=== PATIENT | female | born 1995 | race African-American/Black ===

== ENCOUNTER 2023-11-06 07:25 | Emergency (ER) | payer BC, SELFPAY ==
[2023-11-06 07:34] VITALS: BP 108/74; PULSE 81; O2SAT 100; BMI 31.2
--- NOTE | 2023-11-06 07:41 | ECG_ITS ---
Test Reason : CHEST PAIN Blood Pressure : / mmHG Vent. Rate : 061 BPM Atrial Rate : 061 BPM P-R Int : 180 ms QRS Dur : 070 ms QT Int : 386 ms P-R-T Axes : 051 024 018 degrees QTc Int : 388 ms Normal sinus rhythm Low voltage QRS Septal infarct , age undetermined Abnormal ECG No previous ECGs available Referred By: Latia Perry Electronically Signed By:SAM ENCINAS MD
[2023-11-06 08:08] VITALS: BP 104/69; PULSE 66; RESP 18; TEMP 37.1; O2SAT 100
[2023-11-06 08:40] LABS: MANUAL DIFF FLAG NO
--- NOTE | 2023-11-06 08:43 | ED_ITS ---
HPI - Chest Pain General Chief Complaint: Chest Pain Stated Complaint: L SIDED UPPER CP Time Seen by Provider: 11/06/23 07:29 Source: patient Mode of arrival: ambulatory History of Present Illness HPI narrative: 28-year-old female states that she woke up this morning at 06:30 with pinching she/crampy left parasternal discomfort that she states comes and goes and she reports radiation to the left shoulder. Patient also concerned regarding noticing that her left arm felt weak and that her left leg felt weaker. She denies any fever, chills and does suffer from anxiety and depression and states that she has recently had an increase in her lamotrigine. Otherwise, patient states she is on her menstrual cycle currently. Related Data Allergies Allergy/AdvReac Type Severity Reaction Status Date / Time No Known Allergies Allergy Verified 11/06/23 07:55 Review of Systems 2 Review of Systems: Pertinent positives and negatives as stated in HPI [facility] Past Medical History Source: nursing notes reviewed Social History Social History Alcohol intake: current Alcohol intake frequency: holidays/special occasions only Smoked in Last 30 Days: No Use of substances other than those prescribed or required for medical reasons: No Advance Directives: No Advance Directives Information Provided: No Patient : No Physical Exam 2 Vital Signs: Vital Signs: Last Vital Signs Temp 98.1 F 11/06/23 10:29 Pulse 59 11/06/23 10:29 Resp 14 11/06/23 10:29 BP 117/68 11/06/23 10:29 Pulse Ox 100 11/06/23 08:08 O2 Del Method Room Air 11/06/23 08:08 BMI result Body Mass Index 31.2 VITAL SIGNS: Reviewed. GENERAL: Well developed, well nourished, in no acute distress. HEAD: Normocephalic/atraumatic EYES: PERRLA, EOMI EARS: Ext canals without abnormality, TMs non-bulging and non-erythematous NOSE: Nares patent bilateral OROPHARYNX: no oral lesions noted, posterior pharynx clear and non-erythematous without noted tonsillar enlargement/erythema/exudates NECK: Supple, no adenopathy LUNGS: Normal breath sounds. No adventitious sounds or accessory muscle use. SpO2<100> CARDIOVASCULAR: Regular rate and rhythm without noted murmurs, no JVD or lower extremity edema. ABDOMEN: Soft, non-tender, non-distended with bowel sounds. MUSCULOSKELETAL: No tenderness, deformities, or effusions noted on gross inspection. EXTREMITIES: No cyanosis, clubbing or edema. SKIN: Inspection of the skin reveals no rashes NEUROLOGIC: Alert and oriented x 4. Strength and sensation to light touch were grossly intact x 4, no facial asymmetry, no pronator drift, cranial nerves 2-12 are grossly intact.. Medications Administered Discontinued Medications Generic Name Dose Route Start Last Admin Trade Name Abdulazizq PRN Reason Stop Dose Admin Acetaminophen 975 mg 11/06/23 09:58 11/06/23 10:27 Acetaminophen 325 Mg Tablet PO 11/06/23 09:59 975 mg ONCE ONE Administration Medical Decision Making Medical Decision Making [facility] Narrative: 28-year-old female with history and clinical presentation, DDX: Atypical chest pain, on review of patient's medication list she appears to be on chronic naproxen, low clinical suspicion for cardiopulmonary etiology and patient is PERC negative. She is currently asymptomatic at the time of my interview. No clinical suspicion for neurologic etiology, there are no focal findings, no clinical suspicion for pneumothorax or pneumonia. I reviewed all investigations and hematologic indices are negative for leukocytosis or left shift and there is no anemia or thrombocytopenia. There is noted elevation of eosinophils which may be related to what I can only suspect is an asthma diagnosis as on her medication list she is noted to have a prescription for an albuterol inhaler. However, on lung exam there is no evidence acute asthma exacerbation or expiratory wheezing. Chemistry indices are negative for MATIAS/electrolytes/liver enzyme derangements. Urinalysis is negative for UTI or hematuria and urine is negative. UDS is negative. I reviewed viral testing which is negative for COVID-19. Patient is otherwise discharged in my interpretation is that she is likely experiencing a combination of anxiety and costochondritis but there is a possibility of NSAID induced reflux/chest pain. Differential Diagnosis Differential Diagnoses: The differential diagnosis associated with the presentation includes Please see the discussion above Admission/Observation Consideration of admission/observation: Escalation of care including admission/observation considered Please see the discussion above Lab Data [facility] Lab Attestation statement: I reviewed the patient's lab results. Please see the discussion above 11/06/23 08:32 11/06/23 08:32 Labs: Lab Results 11/06/23 11/06/23 Range/Units 08:32 09:24 WBC 7.4 (4.8-10.8) X10*3/uL RBC 5.12 (4.20-5.50) X10*6/uL Hgb 13.4 (12.0-16.0) g/dl Hct 41.8 (37.0-47.0) % MCV 81.6 (80.0-98.0) fL MCH 26.2 L (27.0-33.0) pg MCHC 32.1 (31.0-35.0) g/dl RDW 13.6 (11.0-16.0) % Plt Count 308 (160-400) X10*3/uL MPV 10.9 (9.4-12.3) fL Immature Gran % (Auto) 0.3 (0.0-0.4) % Neut % (Auto) 63.6 (45-73) % Lymph % (Auto) 23.1 (20-40) % [place] % (Auto) 8.3 (2-11) % Eos % (Auto) 4.3 H (0-4) % Baso % (Auto) 0.4 (0-2) % Lymph # (Auto) 1.7 (1.2-4.9) X10*3/uL [place] # (Auto) 0.6 (0.1-1.2) X10*3/uL Eos # (Auto) 0.3 (0.0-0.4) X10*3/uL Baso # (Auto) 0.0 (0.0-0.2) X10*3/uL Abs Immat Gran (auto) 0.02 (0.00-0.03) X10*3/uL Absolute Neuts (auto) 4.7 (2.0-8.3) x10*3/uL Absolute Nucleated RBC 0.000 (0.0-0.012) X10*3/uL Nucleated RBC % (auto) 0.0 (0.0-0.2) /100WBC Sodium 139 (135-145) mmol/L Potassium 4.5 (3.3-5.1) mmol/L Chloride 107 (96-108) mmol/L Carbon Dioxide 25 (22-29) mmol/L Anion Gap 12 (12-20) BUN 14 (9-16) mg/dL Creatinine 0.83 (0.5-1.4) mg/dL Estim Creat Clear Calc 88.8 Estimated GFR > 60 Random Glucose 87 (60-115) mg/dL Calcium 9.9 (8.4-10.2) mg/dL Total Bilirubin 0.5 (0.0-1.0) mg/dL AST 19 (5-31) U/L ALT 14 (0-31) U/L Alkaline Phosphatase 62 (39-117) U/L Total Protein 7.5 (6.5-8.0) g/dL Albumin 4.4 (3.5-5.0) g/dL Urine Color Yellow Urine Appearance Clear Urine pH 8.5 (5.0-9.0) Ur Specific [place] 1.010 (1.005-1.025) Urine Protein Negative (Neg-Trace) mg/dL Urine Glucose (UA) Negative (Negative) mg/dL Urine Ketones Negative (Negative) mg/dL Urine Blood Negative (Negative) Urine Nitrite Negative (Negative) Ur Leukocyte Esterase Negative (Negative) Urine Test NEGATIVE (NEGATIVE) Urine Opiates Screen Not Detected (Not Detect) Urine Fentanyl Screen Not Detected (Not Detect) Ur Barbiturates Screen Not Detected (Not Detect) Ur Phencyclidine Scrn Not Detected (Not Detect) Ur Amphetamines Screen Not Detected (Not Detect) U Benzodiazepines Scrn Not Detected (Not Detect) Urine Cocaine Screen Not Detected (Not Detect) U Marijuana (THC) Screen Not Detected (Not Detect) COVID-19 (GIL) Negative (Negative) COVID-19 Clin Com See Note Independent Interpretation I performed an independent interpretation of an: EKG Interpretation: Normal sinus rhythm, HR-61, no STEMI, IN/QRS/QTC is within normal limits. Critical Care Time Critical Care Time Critical Care Time: Yes Total Critical Care Time: 30 Attestation: I personally attest to this time spent taking care of the patient. Discharge Plan Discharge Clinical Impression: Atypical chest pain, Acute costochondritis, Anxiety, NSAID induced gastritis Patient Disposition: Home, Self-Care Instructions: Gastritis (ED), Diet for Stomach Ulcers and Gastritis (ED), Costochondritis (ED), Anxiety (ED) Additional Instructions: 1. Resume all home medications as prescribed. Except I would use significant caution with the naproxen as in certain cases this can cause similar symptoms to what you are experiencing. 2. Recommend sticking to Tylenol currently for pain/discomfort, you may try [id number] lidocaine patches and apply to area of maximal tenderness. 3. Please follow-up with your primary care doctor on Wednesday morning. Return to the ER for any worsening symptoms. Referrals: Ivan Flynn MD [Primary Care Provider] -
[2023-11-06 08:45] LABS: Appearance Urine Clear; Basophils Percent Auto 0.4 % (0-2); Color Urine Yellow; Eosinophils Absolute Auto 0.3 X10*3/uL (0.0-0.4); Eosinophils Percent Auto 4.3 % (0-4); Glucose Urine UA Negative (Negative); Hematocrit 41.8 % (37.0-47.0); Hemoglobin 13.4 g/dl (12.0-16.0); Imm Gran Abs Auto 0.02 X10*3/uL (0.00-0.03); Imm Gran Pct Auto 0.3 % (0.0-0.4); Leukocyte Esterase Urine Negative (Negative); Lymphocytes Absolute Auto 1.7 X10*3/uL (1.2-4.9); Lymphocytes Percent Auto 23.1 % (20-40); Mean Corpuscular HGB Conc 32.1 g/dl (31.0-35.0); Mean Corpuscular Hemoglobin 26.2 pg (27.0-33.0); Mean Corpuscular Volume 81.6 fL (80.0-98.0); Mean Platelet Volume 10.9 fL (9.4-12.3); Monocytes Absolute Auto 0.6 X10*3/uL (0.1-1.2); Monocytes Percent Auto 8.3 % (2-11); Neutrophils Absolute Auto 4.7 x10*3/uL (2.0-8.3); Neutrophils Percent Auto 63.6 % (45-73); Nitrite Urine Negative (Negative); PH 8.5 (5.0-9.0); Platelet Count 308 X10*3/uL (160-400); Red Blood Count 5.12 X10*6/uL (4.20-5.50); Red Cell Distribution Width 13.6 % (11.0-16.0); Urine Blood Negative (Negative); Urine Ketones Negative (Negative); Urine Protein Negative (Neg-Trace); White Blood Count 7.4 X10*3/uL (4.8-10.8)
[2023-11-06 08:47] LABS: UPreg QC Valid YES; Urine Pregnancy NEGATIVE (NEGATIVE)
[2023-11-06 08:52] LABS: Amphetamine Screen Urine Not Detected (Not Detect); Barbiturates, Urine Not Detected (Not Detect); Benzodiazepines Screen Urine Not Detected (Not Detect); Cannabinoid Screen Urine Not Detected (Not Detect); Cocaine Screen Urine Not Detected (Not Detect); Fentanyl, urine Not Detected (Not Detect); Opiate Screen Urine Not Detected (Not Detect); Phencyclidine Screen Urine Not Detected (Not Detect)
[2023-11-06 09:00] LABS: Alanine Aminotransferase 14 U/L (0-31); Albumin Level 4.4 g/dL (3.5-5.0); Alkaline Phosphatase 62 U/L (39-117); Anion Gap 12 (12-20); Aspartate Amino Transferase 19 U/L (5-31); Bilirubin Total 0.5 mg/dL (0.0-1.0); Blood Urea Nitrogen 14 mg/dL (9-16); Calcium 9.9 mg/dL (8.4-10.2); Carbon Dioxide 25 mmol/L (22-29); Chloride 107 mmol/L (96-108); Creatinine Clr Calc Pharmacy 88.8; Estimated Glomerular Filt Rate > 60; Glucose Random 87 mg/dL (60-115); Potassium 4.5 mmol/L (3.3-5.1); Sodium 139 mmol/L (135-145); Total Protein 7.5 g/dL (6.5-8.0)
[2023-11-06 10:09] LABS: COVID-19 Test Negative (Negative); IDNOW Serial# 08D9AD1C
[2023-11-06] MEDS: Acetaminophen 325 MG TABLET 975 MG PO (10:27)
[2023-11-06 10:29] VITALS: BP 117/68; PULSE 59; RESP 14; TEMP 36.7
[2023-11-06 11:16] VITALS: BP 117/50; PULSE 66; RESP 18; TEMP 36.8; O2SAT 98
[2023-11-06 12:55] LABS: Troponin-I High Sensitivity < 2.7 ng/L (<3.5-17.0)
== END 2023-11-06 11:16 | disposition home or self-care (01) ==
PROVIDERS: Emergency Provider Student in an Organized Health Care Education/Training Program; PCP Internal Medicine
DX: K29.60 Other gastritis without bleeding (principal); R07.89 Other chest pain; M94.0 Chondrocostal junction syndrome [Tietze]; F41.9 Anxiety disorder, unspecified; Z11.52 Encounter for screening for COVID-19; Z79.899 Other long term (current) drug therapy
CPT/HCPCS: 36415; 80053; 80307; 81003; 81025; 84484; 85025; 87635; 93005; 99283; 99285

== ENCOUNTER → 2023-11-06 07:41 | Outpatient (BNV) | payer BC, SELFPAY | PROVIDERS: Emergency Provider Student in an Organized Health Care Education/Training Program; PCP Internal Medicine; Visit Provider Internal Medicine Cardiovascular Disease | DX: R94.31 Abnormal electrocardiogram [ECG] [EKG] (principal) | CPT/HCPCS: 93010 ==

== ENCOUNTER 2024-09-22 09:31 | Emergency (ER) | payer BC, SELFPAY ==
--- NOTE | ~2024-09-22 | XR_ITS ---
EXAMINATION: XR CHEST CLINICAL INFORMATION: chest pain COMPARISON: None available. TECHNIQUE: 2 views of the chest were obtained. FINDINGS: No significant abnormality is noted involving the heart, lungs, mediastinum, bony thorax or soft tissues. XR/XR chest 2V IMPRESSION: No acute disease Electronically signed by: Jaiden Worley MD 09/22/2024 10:38 AM [facility]
--- NOTE | 2024-09-22 09:32 | ECG_ITS ---
Test Reason : chest pain Blood Pressure : / mmHG Vent. Rate : 074 BPM Atrial Rate : 074 BPM P-R Int : 158 ms QRS Dur : 068 ms QT Int : 378 ms P-R-T Axes : 057 020 024 degrees QTc Int : 419 ms Normal sinus rhythm Septal infarct (cited on or before 06-NOV-2023) Abnormal ECG When compared with ECG of 06-NOV-2023 07:52, No significant change was found Referred By: Generic ED Physician Electronically Signed By:
[2024-09-22 09:44] VITALS: BP 96/49; PULSE 86; RESP 20; TEMP 36.6; O2SAT 100; BMI 33.2
[2024-09-22 10:01] LABS: MANUAL DIFF FLAG NO
[2024-09-22 10:08] LABS: Basophils Percent Auto 0.5 % (0-2); Eosinophils Absolute Auto 0.2 X10*3/uL (0.0-0.4); Eosinophils Percent Auto 2.1 % (0-4); Hematocrit 41.9 % (37.0-47.0); Hemoglobin 13.7 g/dl (12.0-16.0); Imm Gran Abs Auto 0.02 X10*3/uL (0.00-0.03); Imm Gran Pct Auto 0.3 % (0.0-0.4); Lymphocytes Absolute Auto 1.9 X10*3/uL (1.2-4.9); Lymphocytes Percent Auto 24.3 % (20-40); Mean Corpuscular HGB Conc 32.7 g/dl (31.0-35.0); Mean Corpuscular Hemoglobin 26.6 pg (27.0-33.0); Mean Corpuscular Volume 81.2 fL (80.0-98.0); Mean Platelet Volume 10.6 fL (9.4-12.3); Monocytes Absolute Auto 0.7 X10*3/uL (0.1-1.2); Monocytes Percent Auto 8.6 % (2-11); Neutrophils Absolute Auto 5.1 x10*3/uL (2.0-8.3); Neutrophils Percent Auto 64.2 % (45-73); Platelet Count 318 X10*3/uL (160-400); Red Blood Count 5.16 X10*6/uL (4.20-5.50); Red Cell Distribution Width 14.2 % (11.0-16.0); White Blood Count 7.9 X10*3/uL (4.8-10.8)
[2024-09-22 10:15] LABS: Prothrombin Time 11.7 SEC (10.9-12.4)
[2024-09-22 10:20] LABS: Alanine Aminotransferase 23 U/L (0-31); Albumin Level 4.5 g/dL (3.5-5.0); Alkaline Phosphatase 72 U/L (39-117); Anion Gap 10 (12-20); Aspartate Amino Transferase 29 U/L (5-31); Bilirubin Total 0.7 mg/dL (0.0-1.0); Blood Urea Nitrogen 11 mg/dL (9-16); Calcium 9.5 mg/dL (8.4-10.2); Carbon Dioxide 25 mmol/L (22-29); Chloride 108 mmol/L (96-108); Creatinine Clr Calc Pharmacy 90.7; Estimated Glomerular Filt Rate > 60; Glucose Random 88 mg/dL (60-115); Potassium 4.2 mmol/L (3.3-5.1); Sodium 139 mmol/L (135-145); Total Protein 7.9 g/dL (6.5-8.0)
[2024-09-22 10:24] LABS: Troponin-I High Sensitivity < 2.7 ng/L (<3.5-17.0)
[2024-09-22 10:34] LABS: D Dimer High Sensitivity < 150 NG/ML
--- NOTE | 2024-09-22 10:42 | ED_ITS ---
HPI - Chest Pain General Chief Complaint: Chest Pain Stated Complaint: CP Time Seen by Provider: 09/22/24 10:42 Source: patient Mode of arrival: ambulatory Limitations: no limitations History of Present Illness ED Provider: Ramya Morris PA-C HPI narrative: Patient is a 28 year old assigned female at , now identifies as non-binary, with a history of endometriosis on OCP presenting to the emergency department today with left sided chest pain. Patient states that they were seen at a priority care for this chest pain and recommended to come to the ER to rule out a blood clot given their medication regimen. Patient states that the pain started yesterday and has been central / left sided. Patient states that the pain is worse with left arm movement and palpation / pressure on the area makes the pain better somewhat but does not resolve it. Patient denies any dizziness, lightheadedness, abdominal pain, nausea, vomiting, fever, chills, blurry vision, double vision, loss of vision, difficulty breathing, shortness of breath, back pain, night sweats, pain with urination, increased urinary frequency, increased urinary urgency, blood in their urine or stool, syncope or a near syncopal episode, recent trauma or falls, bowel incontinence, bladder incontinence, or any other complaints at this time. MD complaint: chest pain Pain radiation: left arm Severity: moderate Pain scale (0-10): 4 Quality: sharp Relieving factors: other (palpation / pressure) Exacerbating factors: movement Treatment prior to arrival: none Related Data On Oral Contraceptives: Yes Previous Rx's ?Medication ?Instructions ?Recorded cyclobenzaprine 5 mg tablet 5 mg PO TID PRN chest wall pain 7 09/22/24 days #21 tabs Allergies Allergy/AdvReac Type Severity Reaction Status Date / Time No Known Allergies Allergy Verified 09/22/24 09:48 Review of Systems 2 Constitutional: Constitutional: Reports no additional constitutional complaints, Denies chills, Denies fever(s) and Denies night sweats Eyes: Eyes: Reports no additional eye complaints, Denies blurry vision, Denies change in vision, Denies diplopia, Denies eye discharge, Denies loss of vision and Denies eye pain ENT: Denies dizziness Cardiovascular: Cardiovascular: Reports no additional cardiovascular complaints, Reports chest pain, Denies lightheadedness, Denies Loss of Consciousness and Denies dyspnea Respiratory: Respiratory: Reports no additional respiratory complaints and Denies dyspnea Gastrointestinal: Gastrointestinal: Reports no additional gastrointestinal complaints, Denies abdominal pain, Denies melena, Denies hematochezia, Denies change in bowel habits and Denies change in stool character Genitourinary: Genitourinary: Denies hematuria, Denies urinary frequency, Denies dysuria, Denies urinary incontinence, Denies urinary hesitancy and Denies urinary urgency Musculoskeletal: Musculoskeletal: Reports no additional musculoskeletal complaints, Denies numbness and Denies tingling Neurologic: Denies dizziness, Denies loss of vision, Denies numbness and Denies tingling Psychiatric: Psychiatric: Reports no additional psychiatric complaints Endocrine: Endocrine: Reports no additional endocrine complaints Hematologic/Lymphatic: Hematologic/Lymphatic: Reports no additional hematologic/lymphatic complaints Allergic/Immunologic: Allergic/Immunologic: Reports no additional allergic/immunologic complaints PMFSH Past Medical History Attestation statement: The following information was validated with the patient. Source: old records reviewed and nursing notes reviewed Social History Social History Alcohol intake: current Alcohol intake frequency: holidays/special occasions only Advance Directives: No Advance Directives Information Provided: No Physical Exam 2 Vital Signs: Vital Signs: Last Vital Signs Temp 98 F 09/22/24 09:44 Pulse 86 09/22/24 09:44 Resp 20 09/22/24 09:44 BP 96/49 L 09/22/24 09:44 Pulse Ox 100 09/22/24 09:44 O2 Del Method Room Air 09/22/24 09:44 BMI result Body Mass Index 33.2 Const: General: cooperative, no acute distress, alert and awake Nutritional Appearance: well nourished Orientation/consciousness: patient oriented x3 Limitations: no limitations HEENT: Head: Yes normal to inspection and Yes atraumatic Ears: hearing grossly normal bilaterally and external ears normal General nose exam: Normal external nose present, no nasal discharge noted and no epistaxis Face and sinus: Yes normal facial exam, No abrasion and No laceration Mouth: Normal oral and palatal mucosa present, no drooling and no muffled voice Eyes: General: appearance normal, both eyes and all related structures P eriorbital: periorbital findings normal Eyelids: Yes eyelids normal C onjunctivae: conjunctivae normal Pupils: Equal, round and reactive pupils present EOM: EOMs intact bilaterally Neck: Neck: Yes normal visual inspection, Yes full ROM and Yes no lymphadenopathy Chest: Chest palpation & inspection: normal inspection of the chest Resp: Effort & Inspection: normal respiratory effort and able to speak in complete sentences Auscultation: clear to auscultation bilaterally Cardio: Rate: regular rate Rhythm: regular rhythm Heart sounds: S1 normal heart sound present and S2 normal heart sound present GI: Inspection: Yes normal to inspection Neuro: General: patient oriented x3 and moves all extremities Cranial nerves: Yes Equal, round and reactive pupils present Cognition (Neuro): n ormal cognition Extrem: General: Yes normal to inspection, Yes full ROM and Yes capillary refill normal Psych: Appearance: grossly normal Mental Status: mental status grossly normal Affect: normal affect Attitude: cooperative Thought process: N ormal thought process present Thought content: Normal thought content present Insight: Good insight present (Psych) Medications Administered Discontinued Medications Generic Name Dose Route Start Last Admin Trade Name Freq PRN Reason Stop Dose Admin Cyclobenzaprine HCl 5 mg 09/22/24 11:15 09/22/24 11:57 Cyclobenzaprine Hcl 5 Mg Tablet PO 09/22/24 11:16 5 mg ONCE ONE Administration Ketorolac Tromethamine 15 mg 09/22/24 11:15 09/22/24 11:57 Ketorolac Tromethamine 15 Mg/Ml Vial IVPUSH 09/22/24 11:16 15 mg ONCE ONE Administration Medical Decision Making Medical Decision Making [facility] Narrative: Patient is a 28 year old assigned female at , now identifies as non-binary, with a history of endometriosis on OCP presenting to the emergency department today with left sided chest pain. Patient's physical exam was unremarkable. Patient's blood work was unremarkable. Patient's EKG was unremarkable. Patient's chest x-ray showed no acute process. I explained my physical exam findings as well as all test results to the patient. I answered all questions asked by the patient. Patient received PO Flexeril and IV Toradol which, upon re-evaluation, they stated it helped their symptoms. I stressed the importance of the patient taking their medication as directed (either prescribed or as the over the counter packaging recommends). I stressed the importance of the patient following up with their primary care provider. I stressed the importance of the patient returning to the emergency department immediately if their symptoms were to worsen or if they were to develop any dizziness, shortness of breath, difficulty breathing, chest pain, blurry vision, loss of vision, nausea, vomiting, abdominal pain, fever, chills, back pain, or any other complaints. Patient verbalized agreement and understanding with this treatment plan and discharge. Differential Diagnosis Differential Diagnoses: The differential diagnosis associated with the presentation includes Atypical chest pain Chest wall pain PE - negative D-dimer NSTEMI STEMI Admission/Observation Consideration of admission/observation: Escalation of care including admission/observation considered Patient would have been admitted to the hospital had their work up had any findings where hospital admission was appropriate and their clinical presentation warranted hospital admission. Lab Data [facility] Lab Attestation statement: I reviewed the patient's lab results. My interpretation of these results are in the [facility] Rationale portion of this note. 09/22/24 09:57 09/22/24 09:57 Labs: Lab Results 09/22/24 Range/Units 09:57 WBC 7.9 (4.8-10.8) X10*3/uL RBC 5.16 (4.20-5.50) X10*6/uL Hgb 13.7 (12.0-16.0) g/dl Hct 41.9 (37.0-47.0) % MCV 81.2 (80.0-98.0) fL MCH 26.6 L (27.0-33.0) pg MCHC 32.7 (31.0-35.0) g/dl RDW 14.2 (11.0-16.0) % Plt Count 318 (160-400) X10*3/uL MPV 10.6 (9.4-12.3) fL Immature Gran % (Auto) 0.3 (0.0-0.4) % Neut % (Auto) 64.2 (45-73) % Lymph % (Auto) 24.3 (20-40) % [place] % (Auto) 8.6 (2-11) % Eos % (Auto) 2.1 (0-4) % Baso % (Auto) 0.5 (0-2) % Lymph # (Auto) 1.9 (1.2-4.9) X10*3/uL [place] # (Auto) 0.7 (0.1-1.2) X10*3/uL Eos # (Auto) 0.2 (0.0-0.4) X10*3/uL Baso # (Auto) 0.0 (0.0-0.2) X10*3/uL Abs Immat Gran (auto) 0.02 (0.00-0.03) X10*3/uL Absolute Neuts (auto) 5.1 (2.0-8.3) x10*3/uL Absolute Nucleated RBC 0.000 (0.0-0.012) X10*3/uL Nucleated RBC % (auto) 0.0 (0.0-0.2) /100WBC PT 11.7 (10.9-12.4) SEC INR 1.0 (0.9-1.1) D-Dimer High Sensitivty < 150 NG/ML Sodium 139 (135-145) mmol/L Potassium 4.2 (3.3-5.1) mmol/L Chloride 108 (96-108) mmol/L Carbon Dioxide 25 (22-29) mmol/L Anion Gap 10 L (12-20) BUN 11 (9-16) mg/dL Creatinine 0.84 (0.5-1.4) mg/dL Estim Creat Clear Calc 90.7 Estimated GFR > 60 Random Glucose 88 (60-115) mg/dL Calcium 9.5 (8.4-10.2) mg/dL Total Bilirubin 0.7 (0.0-1.0) mg/dL AST 29 (5-31) U/L ALT 23 (0-31) U/L Alkaline Phosphatase 72 (39-117) U/L Troponin I High Sens < 2.7 (<3.5-17.0) ng/L Total Protein 7.9 (6.5-8.0) g/dL Albumin 4.5 (3.5-5.0) g/dL Beta HCG, Quant < 2 mIU/mL Independent Interpretation I performed an independent interpretation of an: EKG and Plain X-Ray Interpretation: My interpretation is in agreement with the radiologist's impression of this imaging study. L EXAMINATION: XR CHEST CLINICAL INFORMATION: chest pain COMPARISON: None available. TECHNIQUE: 2 views of the chest were obtained. FINDINGS: No significant abnormality is noted involving the heart, lungs, mediastinum, bony thorax or soft tissues. XR/XR chest 2V IMPRESSION: No acute disease Electronically signed by: Jaiden Worley MD 09/22/2024 10:38 AM EST Dictated By: Jaiden Worley MD Signed By: Electronically signed by Jaiden Worley MD 09/22/24 1038 Vent. Rate: 074 BPM Atrial Rate: 074 BPM P-R Int: 158 ms QRS Dur: 068 ms QT Int: 378 ms P-R-T Axes: 057 020 024 degrees QTc Int: 419 ms Normal sinus rhythm Septal infarct (cited on or before 06-NOV-2023) When compared with ECG of 06-NOV-2023 07:52, No significant change was found DD/ [id number] Radiology Impression Discussion of test interpretation with radiology: I have reviewed the radiologist's reading. Discharge Plan Discharge Clinical Impression: Atypical chest pain Patient Disposition: Home, Self-Care Instructions: Chest Pain (DC), Chest Wall Pain (ED) Additional Instructions: Your work up is reassuring for no emergent issues. Follow up with your primary care provider. Return to the emergency department immediately if your symptoms worsen or if you develop any dizziness, shortness of breath, difficulty breathing, chest pain, blurry vision, loss of vision, nausea, vomiting, abdominal pain, fever, chills, back pain, or any other complaints. Prescriptions: New cyclobenzaprine 5 mg tablet 5 mg PO TID PRN (Reason: chest wall pain) 7 Days Qty: 21 0RF Referrals: Ivan Flynn MD [Primary Care Provider] - Print Language: Martiniquais
[2024-09-22] MEDS: Ketorolac Tromethamine 15 MG/ML VIAL IVPUSH (11:57)
[2024-09-22] MEDS: Cyclobenzaprine HCl 5 MG TABLET PO (11:57)
[2024-09-22 12:16] LABS: HCG Quantitative < 2 mIU/mL
[2024-09-22 12:35] VITALS: BP 96/49; PULSE 86; RESP 20; TEMP 36.6; O2SAT 100
== END 2024-09-22 12:38 | disposition home or self-care (01) ==
PROVIDERS: Physician Assistant Medical; Emergency Provider Emergency Medicine Emergency Medical Services; PCP Internal Medicine
DX: R07.9 Chest pain, unspecified (principal); N80.9 Endometriosis, unspecified
CPT/HCPCS: 36415; 71046; 80053; 84484; 84702; 85025; 85379; 85610; 93005; 96374; 99284; J1885

== ENCOUNTER 2025-09-13 19:07 | Emergency (ER) | payer BC, SELFPAY ==
--- NOTE | ~2025-09-13 | CT_ITS ---
CLINICAL HISTORY: cholecystitis on US, clinical pic mismatch CT abdomen and pelvis with contrast Comparison: X-rays of the abdomen from 09/14/2025 Findings: Mild right dorsal pleural thickening. No consolidation of the imaged lung bases. Gallbladder is now contracted. Contraction of the gallbladder favored to account for the gallbladder wall thickening. Mild fat deposition noted in the liver. Pancreas and adrenal glands are partly obscured and otherwise unremarkable. The spleen is nonenlarged. No hydronephrosis. Filtered contrast could obscure small stones. Dense and/or opaque ingested material noted in the imaged stomach. Fluid and multiple small-bowel loops nonspecific and can be seen with enteritis. No small bowel obstruction. Severe stool burden present, including the cecum. Imaged appendix within normal limits (65 of series 2 and 46 of series 6). Uterus is anteverted and mildly anteflexed. No adnexal soft tissue mass by CT. Mild wall thickening of the urinary bladder is nonspecific. Mild free fluid in the pelvis nonspecific and may be reactive and/or physiologic. Subcutaneous edema is noted dependently. Small fat containing periumbilical hernia. Mild facet arthropathy of the lower lumbar spine. No acute osseous abnormality. IMPRESSION: 1. Severe stool burden. No small bowel obstruction. 2. Mild wall thickening of the urinary bladder is nonspecific. 3. Wall thickening of the gallbladder likely due to contraction and/or underdistention of the time of the imaging. This document has been electronically signed by: Sammy Carter MD on 09/14/2025 03:14:11
--- NOTE | ~2025-09-13 | US_ITS ---
CLINICAL HISTORY: RUQ pain US abdomen limited Comparison: None provided Findings: Increased echogenicity gallbladder lumen concerning for cholelithiasis (11 of 20). Gallbladder wall thickening and pericholecystic fluid concerning for cholecystitis. Imaged CBD is nondilated measuring 4 mm diameter. Sonographic Ott's sign is not elicited by the technologist. Majority of the liver, majority of the pancreas, and of the right kidney are obscured. Partially imaged IVC is unremarkable. Aorta is obscured. No right upper quadrant ascites or right pleural effusion. Suboptimal evaluation of the main portal vein. IMPRESSION: 1. Gallbladder wall thickening, pericholecystic fluid, and cholelithiasis are concerning for cholecystitis. 2. Imaged CBD is nondilated. This document has been electronically signed by: Sammy Carter MD on 09/13/2025 20:54:19
--- NOTE | ~2025-09-13 | XR_ITS ---
CLINICAL HISTORY: pain,constipation? 1 view abdomen Comparison: None provided Findings: Mild bibasilar atelectasis/pneumonitis. No small bowel dilatation in the imaged abdomen. Severe stool burden noted, including in the cecum. No acute fracture defined by frontal radiographs. IMPRESSION: 1. No small bowel obstruction. 2. Severe stool burden. This document has been electronically signed by: Sammy Carter MD on 09/14/2025 02:23:20
--- NOTE | 2025-09-13 19:21 | ED.ABDPAIN ---
HPI - Abdominal Pain General Chief Complaint: Abdominal Pain Stated Complaint: Stomach Pain Time Seen by Provider: 09/13/25 23:27 Source: patient Limitations: no limitations History of Present Illness ED Provider: Romleia Wallace PA-C HPI narrative: 29-year-old female with a history of depression and endometriosis presents with the abdominal pain for 3 weeks. Pain over upper abdomen with radiation to mid back at times. Patient can not recall if eating and drinking trigger her symptoms. Associated nausea but no vomiting. Patient also states she is constipated, she has a bowel movement every 3-4 days. No fever, abdominal distention or inability to pass flatus. Related Data Previous Rx's ?Medication ?Instructions ?Recorded cyclobenzaprine 5 mg tablet 5 mg PO TID PRN chest wall pain 7 09/22/24 days #21 tabs ondansetron 4 mg disintegrating 4 mg PO Q6H PRN nausea and 09/14/25 tablet vomiting #10 tabs Allergies Allergy/AdvReac Type Severity Reaction Status Date / Time No Known Allergies Allergy Verified 09/13/25 19:27 Review of Systems Review of Systems Yes all other systems are reviewed and are negative Constitutional: Denies fatigue and Denies fever(s) Cardiovascular: Denies chest pain and Denies dyspnea Respiratory: Denies dyspnea Gastrointestinal: Reports abdominal pain, Reports constipation, Reports nausea and Reports vomiting Endocrine: Denies fatigue PMFSH Past Medical History Attestation statement: The following information was validated with the patient. Social History Social History Alcohol intake: never Physical Exam ED Vital Signs: Vital Signs - 24 hr 09/13/25 19:22 09/14/25 00:43 09/14/25 02:00 Temperature 98.4 F 98.0 F 98.0 F Pulse Rate 82 70 70 Respiratory Rate 16 18 18 Blood Pressure 112/60 103/63 103/63 Pulse Oximetry 98 99 99 Oxygen Delivery Method Room Air Room Air Room Air BMI result Body Mass Index 28.3 Const Other: Alert, overall well-appearing Orientation/consciousness: patient oriented x3 Resp Effort & Inspection: normal respiratory effort Cardio Other: Normal peripheral perfusion GI Other: Soft, nondistended, generalized tenderness to palpation without guarding Skin Other: Warm dry no rash Neuro General: patient oriented x3, gait normal, no focal motor deficits and CN's II-XI intact bilaterally Psych Other: Cooperative Course Course Course Narrative: This is an RME: Additional HPI, ROS, PE not included below will be deferred to primary provider. RME assessment and note performed by: Nanic Cox PA-C This is a 85-[id number]-female assigned at , with a hx of endometriosis, PCOS, intersitial cystitis, depression, CT, who presents to the ER with concerns of abdominal pain x 3 days. Endorsing nausea, and blood in stool. Initially had severe constipation. Reports that she has been using OTC laxatives, which provided her with a bowel movement, but still has continued pain. Adamantly denies chance as she does not engage in intercourse with men. TTP throughout, does have RUQ pain Plan: US, UA, Labs Consultations Consultation #1: per Dr. Mcclellan.... He feels this is an odd presentation, we should be getting a CT scan with the oral contrast Time: 01:24 Medical Decision Making Medical Decision Making MDM Narrative: 29-year-old female with a history of depression and endometriosis presents with the abdominal pain for 3 weeks. Pain over upper abdomen with radiation to mid back at times. Patient can not recall if eating and drinking trigger her symptoms. Associated nausea but no vomiting. Patient also states she is constipated, she has a bowel movement every 3-4 days. No fever, abdominal distention or inability to pass flatus. Problem: Endometriosis History: Per patient I have considered the following differential diagnoses: Biliary colic, cholecystitis, GERD gastritis, pancreatitis Plan: screening labs including ultrasound of the right upper quadrant obtained from triage, there was concerns for acute cholecystitis, I did reach out to the surgeon on-call Dr. Mcclellan, given she has an unremarkable abdominal exam with normal LFTs, he feels we should obtain a CT scan with oral contrast. I have independently reviewed the following tests: Labs: No leukocytosis, not anemic, no electrolyte abnormality, LFTs are not elevated lipase not elevated, not , urine not infected US abdomen limited Findings: Increased echogenicity gallbladder lumen concerning for cholelithiasis (11 of 20). Gallbladder wall thickening and pericholecystic fluid concerning for cholecystitis. Imaged CBD is nondilated measuring 4 mm diameter. Sonographic Ott's sign is not elicited by the technologist. Majority of the liver, majority of the pancreas, and of the right kidney are obscured. Partially imaged IVC is unremarkable. Aorta is obscured. No right upper quadrant ascites or right pleural effusion. Suboptimal evaluation of the main portal vein. IMPRESSION: 1. Gallbladder wall thickening, pericholecystic fluid, and cholelithiasis are concerning for cholecystitis. 2. Imaged CBD is nondilated. KUB:Findings: Mild bibasilar atelectasis/pneumonitis. No small bowel dilatation in the imaged abdomen. Severe stool burden noted, including in the cecum. No acute fracture defined by frontal radiographs. IMPRESSION: 1. No small bowel obstruction. 2. Severe stool burden. CT abdomen and pelvis: Findings: Mild right dorsal pleural thickening. No consolidation of the imaged lung bases. Gallbladder is now contracted. Contraction of the gallbladder favored to account for the gallbladder wall thickening. Mild fat deposition noted in the liver. Pancreas and adrenal glands are partly obscured and otherwise unremarkable. The spleen is nonenlarged. No hydronephrosis. Filtered contrast could obscure small stones. Dense and/or opaque ingested material noted in the imaged stomach. Fluid and multiple small-bowel loops nonspecific and can be seen with enteritis. No small bowel obstruction. Severe stool burden present, including the cecum. Imaged appendix within normal limits (65 of series 2 and 46 of series 6). Uterus is anteverted and mildly anteflexed. No adnexal soft tissue mass by CT. Mild wall thickening of the urinary bladder is nonspecific. Mild free fluid in the pelvis nonspecific and may be reactive and/or physiologic. Subcutaneous edema is noted dependently. Small fat containing periumbilical hernia. Mild facet arthropathy of the lower lumbar spine. No acute osseous abnormality. IMPRESSION: 1. Severe stool burden. No small bowel obstruction. 2. Mild wall thickening of the urinary bladder is nonspecific. 3. Wall thickening of the gallbladder likely due to contraction and/or underdistention of the time of the imaging. Differential Diagnosis Differential Diagnoses: The differential diagnosis associated with the presentation includes See [facility] Admission/Observation Consideration of admission/observation: Escalation of care including admission/observation considered Not applicable Lab Data [facility] Lab Attestation statement: I reviewed the patient's lab results. 09/13/25 19:46 09/13/25 19:47 Labs: Lab Results 09/13/25 09/13/25 Range/Units 19:46 19:47 WBC 10.6 (4.8-10.8) X10*3/uL RBC 5.05 (4.20-5.50) X10*6/uL Hgb 13.5 (12.0-16.0) g/dl Hct 42.7 (37.0-47.0) % MCV 84.6 (80.0-98.0) fL MCH 26.7 L (27.0-33.0) pg MCHC 31.6 (31.0-35.0) g/dl RDW 13.7 (11.0-16.0) % Plt Count 326 (160-400) X10*3/uL MPV 10.3 (9.4-12.3) fL Immature Gran % (Auto) 0.3 (0.0-0.4) % Neut % (Auto) 59.5 (45-73) % Lymph % (Auto) 29.7 (20-40) % [place] % (Auto) 6.3 (2-11) % Eos % (Auto) 3.7 (0-4) % Baso % (Auto) 0.5 (0-2) % Lymph # (Auto) 3.1 (1.2-4.9) X10*3/uL [place] # (Auto) 0.7 (0.1-1.2) X10*3/uL Eos # (Auto) 0.4 (0.0-0.4) X10*3/uL Baso # (Auto) 0.1 (0.0-0.2) X10*3/uL Abs Immat Gran (auto) 0.03 (0.00-0.03) X10*3/uL Absolute Neuts (auto) 6.3 (2.0-8.3) x10*3/uL Absolute Nucleated RBC 0.000 (0.0-0.012) X10*3/uL Nucleated RBC % (auto) 0.0 (0.0-0.2) /100WBC Sodium 138 (135-145) mmol/L Potassium 4.1 (3.3-5.1) mmol/L Chloride 109 H (96-108) mmol/L Carbon Dioxide 23 (22-29) mmol/L Anion Gap 10 L (12-20) BUN 18 H (9-16) mg/dL Creatinine 0.84 (0.5-1.4) mg/dL Estim Creat Clear Calc 82.9 Estimated GFR > 60 Random Glucose 91 (60-115) mg/dL Calcium 9.2 (8.4-10.2) mg/dL Magnesium 2.2 (1.6-2.6) mg/dL Total Bilirubin 0.5 (0.0-1.0) mg/dL Direct Bilirubin 0.2 (0.0-0.5) mg/dL AST 24 (5-31) U/L ALT 21 (0-31) U/L Alkaline Phosphatase 72 (39-117) U/L Total Protein 7.8 (6.5-8.0) g/dL Albumin 4.6 (3.5-5.0) g/dL Lipase 24 (8-78) U/L Urine Color Yellow Urine Appearance Clear Urine pH 6.5 (5.0-9.0) Ur Specific [place] >= 1.030 H (1.005-1.025) Urine Protein Trace (Neg-Trace) mg/dL Urine Glucose (UA) Negative (Negative) mg/dL Urine Ketones Trace (Negative) mg/dL Urine Blood Negative (Negative) Urine Nitrite Negative (Negative) Ur Leukocyte Esterase Negative (Negative) Urine Test NEGATIVE (NEGATIVE) Radiology Impression Discussion of test interpretation with radiology: I have reviewed the radiologist's reading. Medications Administered Discontinued Medications Generic Name Dose Route Start Last Admin Trade Name Freq PRN Reason Stop Dose Admin Diatrizoate Meglum/Diatrizoate Sod 30 ml 09/14/25 01:57 09/14/25 01:57 Diatrizoate Meglumine, Sodium 30 Ml Solution PO 09/14/25 01:58 10 ml ONCE ONE Administration Iohexol 100 ml 09/14/25 01:53 09/14/25 01:53 Iohexol 350 Mg/Ml 100 Ml Infus..Btl IV 09/14/25 01:54 85 ml ONCE ONE Administration Ketorolac Tromethamine 15 mg 09/14/25 00:38 09/14/25 00:56 Ketorolac Tromethamine 15 Mg/Ml Vial IVPUSH 09/14/25 00:39 15 mg ONCE ONE Administration Morphine Sulfate 4 mg 09/14/25 03:15 09/14/25 03:33 Morphine Sulfate 4 Mg/Ml Cartridge IVPUSH 09/14/25 03:16 4 mg ONCE ONE Administration Protocol Ondansetron HCl 4 mg 09/14/25 03:54 09/14/25 04:01 Ondansetron Hcl 4 Mg/2 Ml Vial IVPUSH 09/14/25 03:55 4 mg ONCE ONE Administration Discharge Plan Discharge Clinical Impression: Constipation Patient Disposition: Home, Self-Care Instructions: Constipation (ED) Additional Instructions: All of your screening labs including your liver function tests were normal. You were found to have no acute pathology of the gallbladder, you were found to be considerably constipated. You have severe stool burden. See home care instructions. You need to implement an aggressive bowel regimen. In the morning, take 4 anuo-cow-foevdll Colace capsules. You should then use feta-lil-zmxezly MiraLax, every hour, until you begin having multiple large volume bowel movements, and any residual debris of stool is clear liquid. Once you clear your current stool burden, you should stay on a bowel regimen to help maintain regularity. You may require the Colace daily with the MiraLax daily, you will have to determine what regimen is most effective for you. I have provided you with a contact for our Gastroenterology Service. Prescriptions: New ondansetron 4 mg tablet,disintegrating 4 mg PO Q6H PRN (Reason: nausea and vomiting) Qty: 10 0RF No Action cyclobenzaprine 5 mg tablet 5 mg PO TID PRN (Reason: chest wall pain) 7 Days Qty: 21 0RF Referrals: Lynda Edmond MD [Physician, Gastroenterology] Referral Note: IBS/constipation, rectal bleeding Interventions: ED Discharge Assessment Last Done: 09/14/25 04:18 Discharge Date/Time: 09/14/25 04:23 Print Language: Comoran
[2025-09-13 19:22] VITALS: BP 112/60; PULSE 82; RESP 16; TEMP 36.9; O2SAT 98; BMI 28.3
[2025-09-13 19:52] LABS: MANUAL DIFF FLAG NO
[2025-09-13 19:55] LABS: Hematocrit 42.7 % (37.0-47.0); Hemoglobin 13.5 g/dl (12.0-16.0); Imm Gran Abs Auto 0.03 X10*3/uL (0.00-0.03); Imm Gran Pct Auto 0.3 % (0.0-0.4); Lymphocytes Absolute Auto 3.1 X10*3/uL (1.2-4.9); Mean Corpuscular HGB Conc 31.6 g/dl (31.0-35.0); Mean Corpuscular Hemoglobin 26.7 pg (27.0-33.0); Mean Corpuscular Volume 84.6 fL (80.0-98.0); NRBC Abs Auto 0.000 X10*3/uL (0.0-0.012); NRBC Pct Auto 0.0 /100WBC (0.0-0.2); Platelet Count 326 X10*3/uL (160-400); Red Blood Count 5.05 X10*6/uL (4.20-5.50); White Blood Count 10.6 X10*3/uL (4.8-10.8)
[2025-09-13 19:58] LABS: Appearance Urine Clear; Glucose Urine UA Negative (Negative); PH 6.5 (5.0-9.0); Specific Gravity - Urine >= 1.030 (1.005-1.025)
[2025-09-13 20:05] LABS: Alanine Aminotransferase 21 U/L (0-31); Albumin Level 4.6 g/dL (3.5-5.0); Alkaline Phosphatase 72 U/L (39-117); Anion Gap 10 (12-20); Aspartate Amino Transferase 24 U/L (5-31); Blood Urea Nitrogen 18 mg/dL (9-16); Calcium 9.2 mg/dL (8.4-10.2); Carbon Dioxide 23 mmol/L (22-29); Chloride 109 mmol/L (96-108); Creatinine Clr Calc Pharmacy 82.9; Estimated Glomerular Filt Rate > 60; Lipase 24 U/L (8-78); Magnesium 2.2 mg/dL (1.6-2.6); Potassium 4.1 mmol/L (3.3-5.1); Sodium 138 mmol/L (135-145); Total Protein 7.8 g/dL (6.5-8.0)
[2025-09-13 20:12] LABS: UPreg QC Valid YES
--- OUTSIDE RECORDS SUMMARY | 2025-09-13 23:47 | XMS_ITS | Encounter Summary ---
Author Organization [facility] Address [address] [place] [address] Phone Care Team Providers Care Recordist Chief Name Role Phone Ivan Flynn MD Primary Care Provider Ivan Flynn MD Unavailable [phone] Encounter Details Date Type Department Care Team (Late st Contact Info) Description 03/09/2025 Procedure Pass [facility], [facility] [address] [place] [address] Social History Tobacco Use Types Packs/Day Years Used Date Smoking Tobacco: Never Smokeless Tobacco: Never Alcohol Use Standard Drinks/Week Comments Yes 0 (1 standard drink = 0.6 oz pur e alcohol) 3-5 xmonthly Child or Family Care Answer Date Record ed Do you have problems with on e of the following making it difficult for you to work, study, or receive health care? Yes 07/17/2022 Education Answer Date Recorded Are you interested in more education? Not on paty e 07/19/2024 Are you concerned about learning? Not on file 07/19/2024 No 07/19/2024 No 07/19/2024 Food Answer Date Recorded Within the past 6 months we worried whether our food would run out before we got money to buy more. Never True 07/17/2022 Within the past 6 months the food we bought just didn't last and we didn't have enough money to get more. Never True Residential Stability Answer Date Recor ded What is your housing situation today? I have reinaldo steward 07/17/2022 How many times have you move d in the past 12 months? Zero (I did not move) 07/17/2022 Paying for Meds Answer Date Recorded Do you have trouble paying for medicines? No 07/17/2022 Paying Utility Bills Answer Date Record ed Do you have trouble paying your heating or elect ricity bill? No 07/17/2022 Transportation Answer Date Recorded Has the lack of transportati on kept you from medical appointments or from getting medications? No 07/17/2022 Unemployment Answer Date Recorded Are you currently unemployed or working on a part-time or temporary basis, and looking for work? No 07/17/2022 Digital Access Answer Date Recorded No 02/23/2023 No 02/23/2023 Reliable internet access at home? Not on file 02/23/2023 Device with a working camera? 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 Not on file No t on file documented as of this encounter Plan of Treatment Upcoming Encounters Date Type Department Care Team (Late st Contact Info) Description 09/25/2025 1:45 PM EST Office Visit [facility] [address] [place] [address] [address]rd Floor, [address] [place] [address] Benito Moreland MD [address] [facility] [facility], [address] [place] [id number] 12/04/2025 12:30 PM EST Office Visit [facility] [address] [place] [address] Chelsea Cobos, BRANDON [address] [place] [phone] [email or web address] documented as of this encounter Visit Diagnoses Not on filedocumented in this encounter Additional Health Concerns Assessment Noted Time PHQ-9 Depression Total Score: 4 02/18/20 23 9:54 AM EDT A Body Mass Index follow-up plan has been documented for the patient 03/14/2019 10:19 PM EDT PHQ-2 Depression Total Score: 1 02/18/20 23 9:54 AM EDT documented as of this encounter Care Teams Recordist Chief Relationship Specialty Start Date End Date Ivan Flynn MD [address] [place] [address], [address] [place] [phone] [email or web address] [email or web address] - General Internal Medicine 10/10/18 Ivan Flynn MD [address] [place] [address], [address] [place] [phone] [email or web address] Insurance Assigned Provider 01/08/24 documented as of this encounter Additional Source Comments The information contained in this document represents components of the legal health record. It is not the complete legal health record.[facility]
--- OUTSIDE RECORDS SUMMARY | 2025-09-13 23:47 | XMS_ITS | Encounter Summary ---
Author Organization [facility] Address [address] [place] [address] Phone Care Team Providers Care Anatomic Pathology Manager Name Role Phone Ivan Flynn MD Primary Care Provider Ivan Flynn MD Unavailable [phone] Reason for Visit * Reason Onset Date Comments COVID-19 Inquiry 03/31/2024 covid positive 03/31/2024 Encounter Details Date Type Department Care Team (Late st Contact Info) Description 03/31/2024 Nurse Triage [facility] [address] [place] [address] [place] [address] Ivan Flynn MD [address] [place] [address], [address] [place] [address] COVID-19 Inquiry; covid positive Social History Tobacco Use Types Packs/Day Years [...] Answer Date Recorded Are you interested in help w ith more adult education (for example, completing high school, GED, job training, learning the [place] language, technical skills, or developing parenting skills)? No 07/17/2022 Are you concerned about learning? Not on file 07/17/2022 No 07/17/2022 Yes 07/17/2022 Food Answer Date Recorded Within the past [...] your housing situation today? 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 * Neymar Levy RN - 03/31/2024 3:19 PM EDT Reason for Disposition [1] COVID-19 diagnosed by positive lab test (e.g., PCR, rapid self-test kit) AND [2] mild symptoms (e.g., cough, fever, others) AND [3] no complications or SOB Protocols used: Coronavirus (COVID-19) Diagnosed or [id number] Nurse Triage Encounter Note Reason for Triage Cathy Perez Hayley contacted office for COVID-19 Inquiry Other Call Disposition Home Care Disposition Comments: Patient/caregiver understands and will follow disposition: Yes Initial Symptom Screening and Assessment IA Symptom Onset 3-5 days Symptom Severity Moderate - interferes with normal activities Symptom Pattern Constant/continuous Home Treatments OTC Medications Did the home treatments work? No Location? Chest Fever? No Recent surgery? No Known allergy? No Recent travel? No Recent exposure to sick contact? Yes Comments Partner sick last week Respiratory Viral Illness Triage Symptoms Fever: No Cough: Yes Mild Shortness of Breath: Yes Sore Throat: Yes Muscle Aches: No Nasal Congestion: Yes Loss of Smell/Taste: No Atypical symptom concerning for COVID-19: No Concerning Symptoms or Comorbidities: No Date of Symptom Onset: 03/28/2024 Additional symptom comments:Not Answered Home Treatments OTC Medications - Aleve D Cold And Sinus Exposure Information Confirmed exposure to: COVID-19 Date of last influenza contact: n/a Home Test Home Test: Yes - 2 Tests Home Test Result Was Positive: Yes Risk of severe COVID-19: Low COVID Therapy (if applicable) Symptom onset: Less than 5 days Interest in therapy: n/a Influenza Risk Screening (if applicable) High risk disease/disorder: No Age > 65: No Age < 2: No / : No buttermaker care resident: No BMI >= 40: No Symptom onset within 48 hours: No High risk household member: No Recommendations COVID-Guidance: Treatment may not substantially improve safety. Refer to hyperlink below for more information. Flu/RSV-Guidance: n/a Provider Treatment Links [facility] Reference for COVID-19 Outpatient therapy [facility] Influenza Treatment and Chemoprophylaxis Guidelines [facility] Outpatient Respiratory Illness Evaluation Plan / Care Advice Care Advice Patient/Caregiver understands and will follow care advice?: Yes, plans to follow advice Coronavirus (COVID-19) Diagnosed or [id number] Neymar Levy RN WedMar 31, 2024 03:25 PM Disposition and First Aid HOME CARE: * You should be able to treat this at home. Treating the Symptoms of COVID-19 GENERAL CARE ADVICE FOR COVID-19 SYMPTOMS: * The symptoms are generally treated the same whether you have COVID-19, influenza or some other respiratory virus. * Cough: Use cough drops. * Feeling dehydrated: Drink extra liquids. If the air in your home is dry, use a humidifier. * Fever: For fever over 101 F (38.3 C), take acetaminophen every 4 to 6 hours (Adults 650 mg) OR ibuprofen every 6 to 8 hours (Adults 400 mg). Before taking any medicine, read all the instructions onthe package. Do not take aspirin unless your doctor has prescribed it for you. * Muscle aches, headache, and other pains: Often this comes and goes with the fever. Take acetaminophen every 4 to 6 hours (Adults 650 mg) OR ibuprofen every 6 to 8 hours (Adults 400 mg). Before taking any medicine, read all the instructions on the package. * Sore throat: Try throat lozenges, hard candy or warm chicken broth. COUGH MEDICINES: * COUGH DROPS: Exux-zen-safbxjm cough drops can help a lot, especially for mild coughs. They soothean irritated throat and remove the tickle sensation in the back of the throat. Cough drops are easyto carry with you. * COUGH SYRUP WITH DEXTROMETHORPHAN: An nehd-jwu-acmkdcp cough syrup can help your cough. The most common cough suppressant in ybhb-mns-qdepuod cough medicines is dextromethorphan. * HOME REMEDY - HARD CANDY: Hard candy works just as well as xpit-dkw-ucxqpid cough drops. People who have diabetes should use sugar-free candy. * HOME REMEDY - HONEY: This old home remedy has been shown to help decrease coughing at night. The adult dosage is 2 teaspoons (10 ml) at bedtime. HUMIDIFIER: * If the air is dry, use a humidifier in the bedroom. * Dry air makes coughs worse. COUGHING SPELLS: * Drink warm fluids. Inhale warm mist. This can help relax the airway and also loosen up phlegm. * Suck on cough drops or hard candy to coat the irritated throat. PAIN AND FEVER MEDICINES: * For pain or fever relief, take either acetaminophen or ibuprofen. * They are ulxh-bdf-ijfnpqn (OTC) drugs that help treat both fever and pain. You can buy them at the drugstore. * Treat fevers above 101 F (38.3 C). The goal of fever therapy is to bring the fever down to a comfortable level. Remember that fever medicine usually lowers fever 2 degrees F (1 - 1 1/2 degrees C). * ACETAMINOPHEN REGULAR STRENGTH TYLENOL: Take 650 mg (two 325 mg pills) by mouth every 4 to 6 hours as needed. Each Regular Strength Tylenol pill has 325 mg of acetaminophen. The most you should take each day is 3,250 mg (10 pills a day). * ACETAMINOPHEN - EXTRA STRENGTH TYLENOL: Take 1,000 mg (two 500 mg pills) every 8 hours as needed.Each Extra Strength Tylenol pill has 500 mg of acetaminophen. The most you should take each day is 3,000 mg (6 pills a day). * IBUPROFEN (E.G., MOTRIN, ADVIL): Take 400 mg (two 200 mg pills) by mouth every 6 hours. The most you should take each day is 1,200 mg (six 200 mg pills), unless your doctor has told you to take more. CALL BACK IF: * Fever over 103 F (39.4 C) * Fever lasts over 3 days * Fever returns after being gone for 24 hours * Chest pain or difficulty breathing occurs * You become worse Patient will call back with additional questions or if symptoms change or worsen Neymar Levy RN Reason for Disposition and Assessment Per protocols; forwarding to provider for anti-viral prescription. * Gerry Castro - 03/31/2024 1:32 PM EDT Pt LVM stating that she's been having covid for couple of days and starting to get bad cough. Wouldlike to get paxlovid. No telehealth appointments available today. Please advise. documented in this encounter Plan of Treatment Upcoming Encounters Date Type Department Care Team (Late st Contact Info) Description 09/25/2025 1:45 PM EST Office Visit [facility] [address] 3rd [address], [address] [place] [address] Benito Moreland MD [address], [address] [place] [address] 12/04/2025 12:30 PM EST Office Visit [facility] [address] [place] [address] Chelsea Cobos, BRANDON [address] [address] [email or web address] documented as of this encounter Procedures Procedure Name Priority Date/Time Associated Diagnosis Comments COVID-19 ANTIGEN EXTERNAL ORDER Routine 03/31/2024 4:08 PM EDT documented in this encounter Results * (ABNORMAL) COVID-19 Antigen External Order (03/31/2024 4:08 PM EDT) Source Nasal swab SARS-CoV-2 (COVID-19) antigen POSITIVE-V alid Control(A) NEGATIVE-Va lid Control 03/31/2024 4:08 PM EDT Historical Provider BODY FLUIDS AND STOOLS OR DERABLES Final Result documented in this encounter Visit Diagnoses Not on filedocumented in this encounter Additional Health Concerns Infection Onset Date Last Indicated Resolved Time CoV-Exposed Comment:Positive COVID-19 03/31/2024 03/31/2024 03/31/2024 4:0 9 PM EDT CoV-Risk Comment:Per Ambulatory Triage Form 03/31/2024 03/31/202403/31 4:09 PM EDT COVID-19 03/31/2024 03/31/2024 04/21/2024 1:21 AM EDT Assessment Noted Time PHQ-9 Depression Total Score: 4 05/17/20 23 9:54 AM EDT A Body Mass Index follow-up plan has been documented for the patient 03/14/2019 10:19 PM EDT PHQ-2 Depression Total Score: 1 02/18/20 23 9:54 AM EDT documented as of this encounter Care Teams Anatomic Pathology Manager Relationship Specialty Start Date End Date Ivan Flynn MD [address] [place] [email or web address] PCP - General Internal Medicine 10/10/18 Ivan Flynn MD [address] [place] [phone] [email or web address] Insurance Assigned Provider 01/08/24 documented as of this encounter Additional Source Comments The information contained in this document represents components of the legal health record. It is not the complete legal health record.[facility]
[2025-09-14 00:43] VITALS: BP 103/63; PULSE 70; RESP 18; TEMP 36.7; O2SAT 99
[2025-09-14] MEDS: iohexoL 350 MG/ML 100 ML INFUS..BTL IV (01:53)
[2025-09-14 02:00] VITALS: BP 103/63; PULSE 70; RESP 18; TEMP 36.7; O2SAT 99
[2025-09-14 04:03] VITALS: BP 101/69; PULSE 72; RESP 18; TEMP 36.8; O2SAT 99
[2025-09-14 04:18] VITALS: BP 101/69; PULSE 72; RESP 18; TEMP 36.8; O2SAT 99
== END 2025-09-14 04:23 | disposition home or self-care (01) ==
PROVIDERS: Physician Assistant Medical; Emergency Provider Emergency Medicine; PCP Internal Medicine
DX: K59.00 Constipation, unspecified (principal); M54.50 Low back pain, unspecified; R11.0 Nausea; K92.1 Melena; Z79.899 Other long term (current) drug therapy
CPT/HCPCS: 36415; 74018; 74177; 76705; 80048; 80076; 81003; 81025; 83690; 83735; 85025; 96374; 96375; 99284; 99285; J1885; J2270; J2405; Q9967

== ENCOUNTER → 2025-09-13 19:25 | Outpatient (BNV) | payer BC, SELFPAY | PROVIDERS: PCP Internal Medicine; Visit Provider Radiology Neuroradiology | DX: K80.20 Calculus of gallbladder without cholecystitis without obstruction (principal); K82.8 Other specified diseases of gallbladder | CPT/HCPCS: 76705 ==

== ENCOUNTER → 2025-09-14 00:19 | Outpatient (BNV) | payer BC, SELFPAY | PROVIDERS: Emergency Provider Emergency Medicine; PCP Internal Medicine; Visit Provider Radiology Neuroradiology | DX: K82.8 Other specified diseases of gallbladder (principal); R10.9 Unspecified abdominal pain | CPT/HCPCS: 74018; 74177 ==